=== PATIENT | female | born 1945 | race Caucasian/White ===

== ENCOUNTER 2019-02-15 15:36 | Outpatient (REF) | payer MEDICARE, SELFPAY ==
[2019-02-15 22:34] LABS: Anion Gap 11.1 mmol/L (3-11); BUN 8 mg/dL (7-18); CO2 26.9 mmol/L (21.0-32.0); CREATININE 0.66 mg/dL (0.55-1.02); Calcium 9.1 mg/dL (8.5-10.1); Chloride 100 mmol/L (98-107); Glucose 112 mg/dL (70-100); Magnesium 1.9 mg/dL (1.8-2.4); Potassium 4.1 mmol/L (3.5-5.1); Sodium 138 mmol/L (136-145); TSH 1.32 uIU/mL (0.358-3.74); Vitamin B12 940 pg/mL (193-986)
[2019-02-15 23:17] LABS: ALT 17 U/L (12-78); AST 18 U/L (15-37); Albumin 4.1 g/dL (3.4-5.0); Alkaline Phosphatase 91 U/L (46-116); Bilirubin, Total 0.3 mg/dL (0.2-1.0)
== END 2019-02-15 15:56 ==
LOC: NCHCN 15:36
PROVIDERS: PCP Registered Nurse; Visit Provider Registered Nurse
DX: E87.1 Hypo-osmolality and hyponatremia (principal); E03.9 Hypothyroidism, unspecified; D72.829 Elevated white blood cell count, unspecified; R32 Unspecified urinary incontinence
CPT/HCPCS: 80048; 80053; 82607; 83735; 84443

== ENCOUNTER 2019-02-16 22:31 | Outpatient (REF) | payer MEDICARE, SELFPAY | END 2019-02-16 22:51 | LOC: NCHCN 22:31 | PROVIDERS: PCP Registered Nurse; Visit Provider Registered Nurse | DX: R82.90 Unspecified abnormal findings in urine (principal) | CPT/HCPCS: 87086 ==

== ENCOUNTER 2020-11-15 13:02 | Outpatient (REF) | payer MEDICARE, SELFPAY ==
[2020-11-15 21:11] LABS: Albumin 3.8 g/dL (3.4-5.0); Potassium 4.3 mmol/L (3.5-5.1); Sodium 137 mmol/L (136-145); Total Protein 6.6 g/dL (6.4-8.2)
[2020-11-15 21:43] LABS: ALT 20 U/L (14-59); AST 22 U/L (15-37); Alkaline Phosphatase 89 U/L (46-116); Anion Gap 18.4 mmol/L (3-11); BUN 18 mg/dL (7-18); Bilirubin, Total 0.3 mg/dL (0.2-1.0); CO2 18.6 mmol/L (21.0-32.0); CREATININE 0.6 mg/dL (0.55-1.02); Calcium 8.7 mg/dL (8.5-10.1); Chloride 100 mmol/L (98-107); Glucose 99 mg/dL (74-106); TSH 0.97 uIU/mL (0.36-3.74)
== END 2020-11-15 13:03 | disposition home or self-care (01) ==
LOC: NCHCN 13:02
PROVIDERS: PCP Registered Nurse; Visit Provider Registered Nurse
DX: E03.9 Hypothyroidism, unspecified (principal); E87.1 Hypo-osmolality and hyponatremia; K72.91 Hepatic failure, unspecified with coma
CPT/HCPCS: 80053; 84443

== ENCOUNTER 2021-06-11 00:40 | Outpatient (CLI) | payer MEDICARE, SELFPAY ==
--- NOTE | 2021-06-11 17:00 | DI.DEXA_ITS ---
Exam(s) XR DEXA BONE DENSITY W/WO BETZY EXAM: XR DEXA BONE DENSITY W/WO BETZY CLINICAL HISTORY: SCREENING FOR OSTEOPOROSIS IN POSTMENOPAUSAL STATUS Z78.0,? FX RISK TECHNIQUE: Routine DEXA evaluation of the lumbar spine, hip, or forearm. COMPARISON: No exams were available for comparison FINDINGS: Performed on a Hologic unit. Lateral image: No compression fracture evident. Lumbar Spine total T-score: -2.4 Hip total T-score:-2.7 Independent reading at the level of the femoral neck yields at T-score of -3.2. Forearm total T-score: -4.4 IMPRESSION: Bone mineral density measures in the osteoporosis range. Fracture risk is high. Note: Any spine fracture indicates 5x risk for subsequent spine fracture and 2x risk for subsequent h ip fracture. World Health Organization criteria for BMD interpretation classify patients: Normal...... T- Score at or above -1.0 Osteopenic... T- Score between -1.0 and -2.5 Osteoporosis... T-Score at or below -2.5
== END 2021-06-11 01:00 ==
PROVIDERS: PCP Registered Nurse; Visit Provider Registered Nurse
DX: Z13.820 Encounter for screening for osteoporosis (principal); Z78.0 Asymptomatic menopausal state; M81.0 Age-related osteoporosis without current pathological fracture
CPT/HCPCS: 77080

== ENCOUNTER 2022-06-17 16:37 | Outpatient (REF) | payer MEDICARE, MEDICAID, SELFPAY ==
[2022-06-17 21:44] LABS: ALT 16 U/L (14-59); AST 16 U/L (15-37); Alkaline Phosphatase 79 U/L (46-116); Anion Gap 6.1 mmol/L (3-11); BUN 14 mg/dL (7-18); Bilirubin, Total 0.3 mg/dL (0.2-1.0); CO2 28.9 mmol/L (21.0-32.0); CREATININE 0.8 mg/dL (0.55-1.02); Calcium 8.8 mg/dL (8.5-10.1); Chloride 101 mmol/L (98-107); Estimated GFR 75.37 (mL/min/1.73m2); Glucose 107 mg/dL (74-106); Magnesium 1.7 mg/dL (1.8-2.4); Potassium 3.9 mmol/L (3.5-5.1); Sodium 136 mmol/L (136-145); TSH 0.72 uIU/mL (0.36-3.74); Total Protein 6.7 g/dL (6.4-8.2); Vitamin B12 846 pg/mL (193-986)
== END 2022-06-17 16:38 | disposition home or self-care (01) ==
LOC: NCHCN 16:37
PROVIDERS: PCP Registered Nurse; Visit Provider Registered Nurse
DX: Z51.81 Encounter for therapeutic drug level monitoring (principal)
CPT/HCPCS: 80053; 82607; 83735; 84443

== ENCOUNTER 2023-06-03 13:50 | Outpatient (REF) | payer MEDICARE, MEDICAID, SELFPAY ==
[2023-06-03 21:48] LABS: HGB 12.4 g/dL (11.2-15.7); MCH 31.5 pg (27.0-33.0); MCHC 33.5 % (32.0-36.0); MCV 94 fL (80-95); MPV 11.3 fL (8.0-11.0); Platelet Count 143 10^3/uL (130-400); RBC 3.94 10^6/uL (3.93-5.22); RDW 12.5 % (11.7-14.6); RDW-SD 43.2 fL; WBC 9.06 10^3/uL (4.4-10.8)
[2023-06-03 22:25] LABS: ALT 18 U/L (14-59); AST 21 U/L (15-37); Albumin 3.7 g/dL (3.4-5.0); Alkaline Phosphatase 65 U/L (46-116); Anion Gap 6.9 mmol/L (3-11); BUN 13 mg/dL (7-18); Bilirubin, Total 0.3 mg/dL (0.2-1.0); CO2 27.1 mmol/L (21.0-32.0); CREATININE 0.7 mg/dL (0.55-1.02); Calcium 9.5 mg/dL (8.5-10.1); Chloride 103 mmol/L (98-107); Estimated GFR 87.92 (mL/min/1.73m2); Glucose 88 mg/dL (74-106); Magnesium 2.1 mg/dL (1.8-2.4); Potassium 4.1 mmol/L (3.5-5.1); Sodium 137 mmol/L (136-145); TSH 0.78 uIU/mL (0.36-3.74); Total Protein 6.7 g/dL (6.4-8.2); Vitamin B12 1158 pg/mL (193-986)
== END 2023-06-03 13:51 | disposition home or self-care (01) ==
LOC: NCHCN 13:50
PROVIDERS: PCP Registered Nurse; Visit Provider Family Medicine
DX: R63.4 Abnormal weight loss (principal); E03.9 Hypothyroidism, unspecified; I25.10 Atherosclerotic heart disease of native coronary artery without angina pectoris; R53.1 Weakness; D72.829 Elevated white blood cell count, unspecified; K21.9 Gastro-esophageal reflux disease without esophagitis; Z00.00 Encounter for general adult medical examination without abnormal findings
CPT/HCPCS: 80053; 85027; 82607; 83735; 84443

== ENCOUNTER 2024-10-31 00:46 | Outpatient (CLI) | payer MEDICARE, MEDICAID, SELFPAY ==
--- NOTE | 2024-10-31 | DI.DEXA_ITS ---
Exam(s) XR DEXA BONE DENSITY W/WO BETZY EXAM: XR DEXA BONE DENSITY W/WO BETZY CLINICAL HISTORY: POSTMENOPAUSAL STATE, Z78.0, SCREENING TECHNIQUE: Hologic Horizon C densitometer analysis of right hip, lumbar spine and left forearm. La teral survey image of the thoracic and lumbar spine. COMPARISON: CR XR DEXA BONE DENSITY W/WO BETZY from 06/11/2021 FINDINGS: Lateral view of the thoracic and lumbar spine shows no evidence of compression fractures. The uppe r thoracic vertebral bodies not well seen. Bone mineral density measurements of the lumbar spine correspond to a total T-score of -2.2, in the osteopenic range. This is not significantly changed from the prior exam. Bone mineral density measurements of the right hip correspond to a total T-score of -2.3. This repr esents an 8.1 percent increase from 2020 the femoral neck T-score is -3.0, in the osteoporotic range .. Theleft forearm bone mineral density measurements correspond to a T-score of the distal 3rd of -4.1, in the osteoporotic range. This represents a 3.2 percent increase from 2020. . IMPRESSION: Osteopenia of the lumbar spine. Osteoporosis of the hip and forearm.
== END 2024-10-31 01:06 ==
LOC: DI 00:47
PROVIDERS: PCP Registered Nurse; Visit Provider Family Medicine
DX: Z78.0 Asymptomatic menopausal state (principal); Z13.820 Encounter for screening for osteoporosis
CPT/HCPCS: 77080

== ENCOUNTER 2025-01-22 21:16 | Outpatient (REF) | payer MEDICARE, MEDICAID, SELFPAY ==
[2025-01-22 22:22] LABS: BUN 12 mg/dL (7-18); CREATININE 0.6 mg/dL (0.55-1.02); Calcium 9.4 mg/dL (8.5-10.1); Chloride 97 mmol/L (98-107); Estimated GFR 90.12 (mL/min/1.73m2); Glucose 88 mg/dL (74-106); Potassium 4.2 mmol/L (3.5-5.1); Sodium 135 mmol/L (136-145); TSH (W/Ref FT4) 1.36 uIU/mL (0.36-3.74)
== END 2025-01-22 21:17 | disposition home or self-care (01) ==
LOC: NCHCN 21:16
PROVIDERS: PCP Registered Nurse; Visit Provider Family Medicine
DX: E03.9 Hypothyroidism, unspecified (principal); Z68.28 Body mass index [BMI] 28.0-28.9, adult
CPT/HCPCS: 80048; 84443

== ENCOUNTER 2025-03-26 16:21 | Outpatient (REF) | payer MEDICARE, MEDICAID, SELFPAY ==
[2025-03-26 15:18] LABS: HCT 35.6 % (36.0-46.0); HGB 12.0 g/dL (11.2-15.7); MCH 31.7 pg (27.0-33.0); MCHC 33.7 % (32.0-36.0); MCV 94 fL (80-95); MPV 10.6 fL (8.0-11.0); Platelet Count 177 10^3/uL (130-400); RBC 3.79 10^6/uL (3.93-5.22); RDW 12.5 % (11.7-14.6); RDW-SD 43.0 fL; WBC 7.35 10^3/uL (4.4-10.8)
[2025-03-26 15:42] LABS: Total Iron Binding Capacity 381 ug/dL (250-450)
[2025-03-26 16:07] LABS: Anion Gap 8.3 mmol/L (3-11); BUN 9 mg/dL (7-18); CO2 27.7 mmol/L (21.0-32.0); Calcium 8.9 mg/dL (8.5-10.1); Chloride 101 mmol/L (98-107); Estimated GFR 86.83 (mL/min/1.73m2); Glucose 90 mg/dL (74-106); Potassium 3.8 mmol/L (3.5-5.1); Sodium 137 mmol/L (136-145); Vitamin B12 1028 pg/mL (193-986)
[2025-03-26 16:10] LABS: Folate > 20.0 ng/mL (8.6-20.0)
== END 2025-03-26 16:22 | disposition home or self-care (01) ==
LOC: NCHCN 16:21
PROVIDERS: PCP Registered Nurse; Visit Provider Family Medicine
DX: D64.9 Anemia, unspecified (principal); E87.1 Hypo-osmolality and hyponatremia; Z91.81 History of falling
CPT/HCPCS: 80048; 85027; 82607; 82746; 83550